=== PATIENT | male | born 1955 | race Caucasian/White ===

== ENCOUNTER 2017-05-11 23:17 | Emergency (ER) | payer SELFPAY ==
[2017-05-11] MEDS ORDERED: Ketorolac INJ* 60 MG/2 ML VIAL IM ONE (23:39)
[2017-05-12] MEDS ORDERED: Ibuprofen TAB* 800 MG PO ONE (00:07)
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
[2017-05-12 00:19] VITALS: BP 144/68
--- NOTE | 2017-05-12 07:35 | RAD ---
INDICATION: Right shoulder pain. TECHNIQUE: 4 views of the right shoulder were obtained. FINDINGS: The bones are in normal alignment. No fracture is seen. There is severe joint space narrowing hypertrophic and sclerotic change present around the glenohumeral joint consistent with severe osteoarthritic change. There is moderate osteoarthritic change in the acromioclavicular joint. There are calcifications adjacent to the superior aspect of the clavicle and acromion process. IMPRESSION: SEVERE OSTEOARTHRITIC CHANGE IN THE GLENOHUMERAL JOINT AND MODERATE OSTEOARTHRITIC CHANGE IN THE ACROMIOCLAVICULAR JOINT.
== END 2017-05-12 00:19 | disposition home or self-care (01) ==
LOC: ED 23:17
DX: M62.838 Other muscle spasm (principal); M25.511 Pain in right shoulder; M54.2 Cervicalgia; M79.89 Other specified soft tissue disorders; I10 Essential (primary) hypertension
CPT/HCPCS: 96372; 99282; A9270-GY; J1885

== ENCOUNTER 2017-08-15 11:07 | Emergency (ER) | payer BC ==
[2017-08-15 12:12] LABS: Hematocrit 46 % (42-52); Hemoglobin 16.2 g/dl (14.0-18.0); Mean Corpuscular HGB Conc 35 g/dl (31-36); Mean Corpuscular Hemoglobin 36 pg (27-31); Mean Corpuscular Volume 102 fL (80-94); Mean Platelet Volume 10 um3 (7.4-10.4); Red Blood Count 4.53 10^6/ul (4.0-5.4); Red Cell Distribution Width 14 % (10.5-15); White Blood Count 8.1 10^3/ul (3.5-10.8)
[2017-08-15 12:35] LABS: Troponin I 0.03 ng/mL (<0.04)
[2017-08-15 12:46] LABS: Albumin 3.8 g/dL (3.2-5.2); BUN/Creatinine Ratio 6.5 (8-20); EGFR African American 48.1 (>60); EGFR Non-African American 37.4 (>60); Globulin 2.8 g/dL (2-4); Potassium 4.2 mmol/L (3.5-5.0); Total Bilirubin 1.7 mg/dL (0.2-1.0); Total Protein 6.6 g/dL (6.4-8.9)
--- NOTE | 2017-08-15 12:49 | RAD ---
HISTORY: Radiculopathy COMPARISONS: March 18, 2015 TECHNIQUE: Multiple contiguous axial CT scans were obtained of the cervical spine without intravenous contrast, with coronal and sagittal multiplanar reformations. FINDINGS: BRAIN: The visualized brain is unremarkable CENTRAL CANAL: Evaluation of the central canal is limited on CT technique; however, there is no obvious canalicular mass or epidural hemorrhage. ALIGNMENT: There is straightening with mild reversal of normal cervical lordosis. VERTEBRAL BODIES: There is multilevel anterolateral marginal osteophyte formation. There are mild sclerotic reactive endplate changes. JOINTS: There is uncovertebral and facet hypertrophic change. MUSCULATURE: Unremarkable INTERVERTEBRAL DISCS: There is diffuse loss of intervertebral disc height. AXIAL IMAGES: C2-C3: There is bilateral uncovertebral hypertrophy. There is no osseous neural foraminal narrowing or central canal stenosis C3-C4: There is a central disc protrusion measuring 0.4 cm in depth. There is exuberant left-sided uncovertebral facet hypertrophy. There is left neural foraminal narrowing. There is no osseous central canal stenosis. C4-C5: There is a broad-based discussed effect convex bilateral uncovertebral and facet hypertrophy. There is severe bilateral neural foraminal narrowing. There is moderate narrowing of the central canal. C5-C6: There is bilateral uncovertebral and facet hypertrophy. There is severe bilateral neural foraminal narrowing. There is mild narrowing of the central canal. C6-C7: There is bilateral uncovertebral facet hypertrophy. There is severe bilateral neural foraminal narrowing. There is no osseous central canal stenosis. C7-T1: There is no osseous neural foraminal narrowing or central canal stenosis. SOFT TISSUES: The visualized soft tissues of the neck are unremarkable. The prevertebral fat stripe is preserved. OTHER: None. IMPRESSION: 1. DEGENERATIVE DISC DISEASE AND OSTEOARTHRITIS. 2. THERE IS A CENTRAL DISC PROTRUSION AT C3-C4. 3. THERE IS MODERATE NARROWING OF CENTRAL CANAL AT C4-C5 WITH MILD NARROWING AT C5-C6. 4. THERE IS MULTILEVEL NEURAL FORAMINAL NARROWING RIGHT ABOVE..
[2017-08-15] MEDS ORDERED: Dexamethasone IV* 4 MG/ML 1 ML (4 MG) IV SLOW PU ONE (15:51)
[2017-08-15 16:06] VITALS: BP 142/78
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
== END 2017-08-15 16:06 | disposition home or self-care (01) ==
LOC: ED 11:07
DX: M54.12 Radiculopathy, cervical region (principal); I10 Essential (primary) hypertension; M06.9 Rheumatoid arthritis, unspecified
CPT/HCPCS: 36415; 72125; 80053; 83605; 84484; 85025; 93005; 99282; J1100

== ENCOUNTER 2017-09-26 14:09 | Emergency (ER) | payer BC, MEDICARE ==
[2017-09-26 14:22] VITALS: BP 179/113
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
== END 2017-09-26 15:05 | disposition short-term general hospital (02) ==
LOC: UCCORT 14:09
DX: S71.132A Puncture wound without foreign body, left thigh, initial encounter (principal); L03.116 Cellulitis of left lower limb; W27.8XXA Contact with other nonpowered hand tool, initial encounter; Y93.9 Activity, unspecified; Y92.9 Unspecified place or not applicable; Y99.0 Civilian activity done for income or pay; E11.9 Type 2 diabetes mellitus without complications; I10 Essential (primary) hypertension; Z88.6 Allergy status to analgesic agent; Z88.1 Allergy status to other antibiotic agents; Z88.8 Allergy status to other drugs, medicaments and biological substances
CPT/HCPCS: 99212; G0463

== ENCOUNTER 2017-09-26 16:04 | Emergency (ER) | payer MEDICARE ==
[2017-09-26 16:33] VITALS: BP 162/98
[2017-09-26 16:36] LABS: Hematocrit 40 % (42-52); Hemoglobin 14.1 g/dl (14.0-18.0); Mean Corpuscular HGB Conc 35 g/dl (31-36); Mean Corpuscular Hemoglobin 35 pg (27-31); Mean Corpuscular Volume 100 fL (80-94); Mean Platelet Volume 9 um3 (7.4-10.4); Red Blood Count 4.05 10^6/ul (4.0-5.4); Red Cell Distribution Width 13 % (10.5-15); White Blood Count 14.6 10^3/ul (3.5-10.8)
[2017-09-26 16:43] LABS: Albumin 3.8 g/dL (3.2-5.2); BUN/Creatinine Ratio 9.7 (8-20); Calcium 9.3 mg/dL (8.6-10.3); EGFR Non-African American 42.8 (>60); Globulin 3.7 g/dL (2-4); Potassium 3.7 mmol/L (3.5-5.0); Total Bilirubin 1.3 mg/dL (0.2-1.0); Total Protein 7.5 g/dL (6.4-8.9)
--- NOTE | 2017-09-26 19:47 | RAD ---
Indication: Leg injury. 2 views of the leg demonstrates a hypoechoic area in the left thigh measuring 16 x 13 x 6 mm. This may represent a small hematoma. IMPRESSION: In the area of tenderness in the left thigh small hypoechoic area measuring 16 x 13 x 16 mm may represent a small hematoma.
[2017-09-26] MEDS ORDERED: Sulfamethox/Trimethoprim DS 800/160* TAB PO ONE ×2 (20:01)
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
== END 2017-09-26 20:19 | disposition home or self-care (01) ==
LOC: ED 16:04
DX: S70.12XA Contusion of left thigh, initial encounter (principal); M06.9 Rheumatoid arthritis, unspecified; I10 Essential (primary) hypertension; W45.0XXA Nail entering through skin, initial encounter; Y92.9 Unspecified place or not applicable
CPT/HCPCS: 36415; 80053; 85025; 85610; 85730; 93005; 99282; A9270-GY

== ENCOUNTER 2019-01-13 21:20 | Emergency (ER) | payer MEDICARE ==
[2019-01-13] MEDS ORDERED: HYDROcodone/ACETAMIN 5-325 MG* 1 TAB PO ONE (22:09)
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
[2019-01-13] MEDS ORDERED: Acetaminophen TAB* 325 MG PO ONE (22:20)
[2019-01-13 22:31] LABS: ABS Basophils 0 10^3/ul (0-0.2); ABS Eosinophils 0.2 10^3/ul (0-0.6); ABS Lymphocytes 1.3 10^3/ul (1.0-4.8); ABS Monocytes 0.9 10^3/ul (0-0.8); ABS Neutrophils 6.5 10^3/ul (1.5-7.7); ABS Nucleated RBC 0 10^3/ul; Eosinophil % 1.7 %; Hematocrit 54 % (36-46); Hemoglobin 18.3 g/dL (14.0-18.0); Lymphocyte % 14.8 %; Mean Corpuscular HGB Conc 34 g/dL (31-36); Mean Corpuscular Hemoglobin 34 pg (27-31); Mean Corpuscular Volume 100 fL (80-94); Mean Platelet Volume 9.1 fL (7.4-10.4); Nucleated Red Blood Cells % 0.1; Platelet Count 211 10^3/uL (150-450); Red Blood Count 5.38 10^6 /uL (4.18-5.48); Red Cell Distribution Width 14 % (10.5-15); White Blood Count 8.9 10^3/uL (3.5-10.8)
[2019-01-13 22:47] LABS: BUN/Creatinine Ratio 8.4 (8-20); C Reactive Protein 16.84 mg/L (<8.01); Calcium 9.5 mg/dL (8.6-10.3); EGFR African American 67.3 (>60); EGFR Non-African American 55.6 (>60)
[2019-01-14 00:43] VITALS: BP 174/117
== END 2019-01-14 00:41 | disposition home or self-care (01) ==
LOC: ED 21:20
DX: R60.0 Localized edema (principal); M25.562 Pain in left knee; E11.9 Type 2 diabetes mellitus without complications; I10 Essential (primary) hypertension; Z88.6 Allergy status to analgesic agent; Z88.8 Allergy status to other drugs, medicaments and biological substances
CPT/HCPCS: 36415; 80048; 85025; 86140; 99282; A9270-GY

== ENCOUNTER 2019-12-08 19:28 | Emergency (ER) | payer MEDICARE ==
--- OUTSIDE RECORDS SUMMARY | 2019-12-08 19:56 | XMS REPORT | Summary of Care ---
:1955 Author Organization [facility] Address [address] [place] [address] Care Team Providers Name Role Phone Paulette Felix Primary Care Provider Reason for Referral MRI/CAT/PET Scan (Routine) Status Reason Specialty Diagnoses / Referred By Referred To Procedures Contact Contact Authorized Diagnoses Syncope, unspecified syncope type Paulette Felix Procedures VL NECK CAROTID BILATERAL [facility] [address] [place] [address] MRI/CAT/PET Scan (Routine) Status Reason Specialty Diagnoses / Procedures Referred By Referred To Contact Contact Authorized Diagnoses Acute nonintractable headache, unspecified headache type Syncope, unspecified syncope type Elvira, Procedures MR BRAIN WO CONTRAST [facility] [place] [address] [place] [address] Diagnostic Testing (Routine) Status Reason Specialty Diagnoses / Referred By Referred To Procedures Contact Contact Pending Review Diagnoses Syncope, unspecified syncope type Elvira, Procedures ECHOCARDIOGRAM TTE [facility] [place] [address] [place] [address] Reason for Visit Reason Comments Check Up blacking out when standing up x2wks Encounter Details Date Type Department Care Team Description 11/12/2019 Office Visit [facility] [place], Syncope, unspecified syncope type (Primary Dx); Practice [facility] [place] Acute nonintractable headache, unspecified headache type [address] [place] [address] [place] [address] [phone] Allergies Active Allergy Reactions Severity Noted Date Comments Metformin GI Reaction 09/26/2017 Nsaids Other 05/06/2016 Renal Statins Musculoskeletal 04/29/2018 With elevated CPK on lipitor Tizanidine Cardiac Reaction 05/04/2015 Syncope documented as of this encounter (statuses as of 11/13/2019) Medications Medication Sig Dispensed Refills Start Date End Date Status hydroxychloroquine Take 400 mg by 0 Active (PLAQUENIL) 200 MG Oral mouth DAILY. Tab TESTOSTERONE CYPIONATE Inject 50 mg 0 Active IM within a muscle. Sildenafil Citrate 100 Take 1 Tab by 30 Tab 0 05/31/2019 Active MG Oral Tab mouth DAILY. amitriptyline (ELAVIL, TAKE FOUR 240 Tab 1 06/18/2019 Active ENDEP) 25 MG Oral TABLETS BY TabIndications: MOUTH AT Insomnia, unspecified BEDTIME type sitagliptin (JANUVIA) Take 1 Tab by 90 Tab 0 07/18/2019 Active 100 MG Oral mouth DAILY. TabIndications: Uncontrolled type 2 diabetes mellitus with hyperglycemia (HCC) carvedilol (COREG) 12.5 Take 1 Tab by 60 Tab 2 07/18/2019 Active MG Oral TabIndications: mouth TWICE Hypertension, DAILY. unspecified type amLodipine (NORVASC) 10 TAKE ONE 90 Tab 1 07/26/2019 Active MG Oral TabIndications: TABLET BY Hypertension, MOUTH EVERY unspecified type DAY Omeprazole 40 MG Oral TAKE ONE 90 Cap 1 08/16/2019 Active CAPSULE DELAYED CAPSULE BY RELEASEIndications: MOUTH EVERY Gastroesophageal reflux DAY BEFORE disease, esophagitis BREAKFAST presence not specified lisinopril (PRINIVIL, TAKE ONE 90 Tab 1 08/18/2019 Active ZESTRIL) 40 MG Oral TABLET BY TabIndications: MOUTH EVERY Hypertension, DAY unspecified type glipiZIDE (GLUCOTROL Take 2 Tabs by 180 Tab 1 08/18/2019 Active XL) 10 MG Oral TABLET mouth DAILY. SR 24 HRIndications: Uncontrolled type 2 diabetes mellitus with hyperglycemia (HCC) clotrimazole-betamethas Apply 45 g 0 10/04/2019 Active one (LOTRISONE) 1-0.05 sparingly to % Apply externally rash twice a CreamIndications: Rash day hydrOXYzine HCL Take 1 Tab by 90 Tab 0 10/09/2019 Active (ATARAX) 25 MG Oral mouth THREE TabIndications: Rash TIMES DAILY NEEDED (itchiness of skin). venlafaxine (EFFEXOR TAKE ONE 90 Cap 0 10/14/2019 Active XR) 75 MG Oral CAPSULE CAPSULE BY SR 24 HRIndications: MOUTH EVERY Depression, unspecified DAY depression type chlorthalidone Take 1 Tab by 30 Tab 1 10/22/2019 Active (HYGROTON) 25 MG Oral mouth DAILY. TabIndications: Essential hypertension Dulaglutide (TRULICITY) Inject 0.75 mg 1.96 mL 3 10/26/2019 Active 0.75 MG/0.5ML beneath the Subcutaneous Solution skin EVERY 7 Pen-injectorIndications DAYS. : Controlled type 2 diabetes mellitus with diabetic neuropathy, with long-term current use of insulin ([facility]) Liraglutide 18 MG/3ML Inject 0.6 mg 3 Pre-filled 3 10/27/2019 02/01/20 Active Subcutaneous Solution beneath the Pen Syringe 20 Pen-injectorIndications skin DAILY for : Controlled type 2 7 days, THEN diabetes mellitus with 1.2 mg DAILY diabetic neuropathy, for 90 days. with long-term current use of insulin ([facility]) pioglitazone (ACTOS) 15 Take 1 Tab by 90 Tab 1 10/28/2019 Active MG Oral TabIndications: mouth DAILY. Type 2 diabetes mellitus without complication, without long-term current use of insulin ([facility]) ciprofloxacin (CIPRO) Take 1 Tab by 1 Tab 0 11/11/2019 11/12/19 500 MG Oral mouth 20 TabIndications: DIRECTED for 1 Elevated PSA day. 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 Jaramillo) Effusion of left knee 01/18/2019 Inflammatory arthritis 01/12/2019 S/P arthroscopy of left knee 12/28/2018 Claudication 11/20/2018 Controlled type 2 diabetes mellitus with diabetic neuropathy, with 11/20/2018 long-term current use of insulin Primary osteoarthritis of right knee 09/04/2018 Traumatic tear of medial meniscus of left knee 08/20/2018 CASANDRA (acute kidney injury) 03/11/2018 Right renal mass 01/11/2018 Well adult exam 05/20/2017 Cancer Survivorship 01/08/2017 Overview: Survivorship Treatment Summary - Melanoma Stage IA and IIA [facility] Stage IA T1a Cancer Care Team: Surgeon: Dr. Medrano Surgical Physician Hatchery Attendant: Tennille Mohan PA-C Diagnosis and Staging : Date of diagnosis: 12/03/16 Final Pathologic Diagnosis 1. Skin, left back, excision: - Malignant melanoma, non-ulcerated, invasive to a depth of 0.73 mm. Synoptic Report: - Site: Left back. - Breslow's thickness: 0.73 mm. - Tenzin's level: IV. - Cell type: Epithelioid. - Ulceration: Not identified. - Mitotic index: <1/mm2. - Microsatellite nodules: Not identified. - Lymphovascular invasion: Not identified. - Perineural invasion: Not identified. - Regression: Present. - Tumor infiltrating lymphocytes: Minimal. - Pre-existing lesions: Dysplastic nevus. - Margins: The intraepidermal component and dermal components extend to within 0.5 mm and 2 mm of a radial margin, respectively. - Pathologic staging (AJCC Seventh Edition): pT1a, NX, MX. Primary site: Left Upper Back adjacent to Tattoo Clinical stage : pT1a Stage IA Surgery: Date: 12/26/16 Dr. Medrano OPERATIONS: (1) Wide excision, 3 cm x 9 cm, melanoma left upper back. (2) Intermediate wound closure. (3) Excision of basal cell carcinoma right upper back, 4 x 9 cm. (4) Intermediate wound closure. Final Pathology: Final Pathologic Diagnosis 1. Skin, left shoulder, excision: - No residual melanoma seen. - Biopsy site changes. FOLLOW UP PLAN Post Treatment Surveillance Recommendations: - Establish care or Continue current visits with [facility] for Total Body Skin Exams every 3-6 months for 2 years following diagnosis. - Annual visits after the first 2 years for Total Body Skin Exams for life. - Any unusual or changing skin lesions should be brought to the attention of your Dermatology Provider. - You may contact our office with concerning lesions for possible biopsy though this does not replace annual Total Body Skin Exams. - Routine blood tests are not recommended. PREVENTIVE HEALTH & CANCER SCREENING: -Maintain yearly appointments with PCP. Schedule of follow up Clinic Visits: - Surgical Oncology [place]/Dr. Medrano - As Needed [facility] [address] [facility] [place] [address] - Dermatology [facility] Dr. Ray 02/18/2017 @ 2:30 PM Basal cell carcinoma of back 12/11/2016 Malignant melanoma of skin 12/11/2016 Prediabetes 11/07/2016 Skin lesion of back 11/07/2016 Elevated PSA 05/06/2016 Elevated LDL cholesterol level 05/06/2016 Tinea versicolor 05/02/2016 Primary insomnia 10/03/2015 Essential hypertension 10/03/2015 Erectile dysfunction due to arterial insufficiency 09/05/2015 Colon cancer screening 09/05/2015 Prostate cancer screening 09/05/2015 History of rotator cuff surgery 09/05/2015 Overview: Right Family history of diabetes mellitus type II 09/05/2015 Family history of anxiety disorder 09/05/2015 Family history of early CAD 09/05/2015 Overview: Father. Refractive error 09/05/2015 Overview: Dr. 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 seeing dr. slater documented as of this encounter (statuses as of 11/13/2019) Resolved Problems Problem Noted Date Resolved Date BMI 29.0-29.9,adult 10/03/2015 10/31/2015 Lipid screening 10/03/2015 05/06/2016 Well adult 09/05/2015 05/20/2017 BMI 31.0-31.9,adult 09/05/2015 10/03/2015 Insomnia 09/05/2015 10/03/2015 Syncope and collapse 03/22/2015 09/05/2015 Right orbital fracture 03/21/2015 09/05/2015 arthroscopy right knee partial arthroscopic medial 12/21/2014 09/05/2015 meniscectomy, chondroplasty femoral trochlea and medial femoral condyle, shaving of the lateral meniscus Nasal bone fracture 08/09/2014 09/05/2015 Scalp laceration 08/09/2014 09/05/2015 Laceration of leg, left 08/09/2014 09/05/2015 Olecranon fracture 08/09/2014 09/05/2015 Overview: Right Traumatic diastasis of symphysis pubis 08/09/2014 09/05/2015 Crush injury lower leg 08/09/2014 09/05/2015 Rash 07/03/2013 09/07/2014 BMI 30.0-30.9,adult 04/08/2013 09/05/2015 Essential hypertension, benign 05/18/2009 09/05/2015 Overview: Diagnosed as a teen/early 20s Anxiety state, unspecified 09/19/2008 04/10/2012 Acute sinusitis, unspecified 09/19/2008 04/11/2011 Acute upper respiratory infections of unspecified site 09/19/2008 04/11/2011 Erectile dysfunction 10/03/2015 documented as of this encounter (statuses as of 11/13/2019) Immunizations Name Administration Dates Next Due TDAP Vaccine 08/05/2014 documented as of this encounter Social History Tobacco Use Types Packs/Day Years Used Date Never Smoker Smokeless Tobacco: Never Used Alcohol Use Drinks/Week oz/Week Comments Yes 4 Glasses of wine 4.0 weekends: 4 vodkas. Sex Assigned at Date Recorded Not on file Job Start Date Occupation Industry Not on file Not on file Not on file Travel History Travel Start Travel End No recent travel history available. documented as of this encounter Last Filed Vital Signs Vital Sign Reading Time Taken Comments Blood Pressure 144/82 11/12/2019 2:21 PM EST Pulse 64 11/12/2019 2:21 PM EST Temperature 36.9 11/12/2019 1:44 PM EST C (98.5 F) Respiratory Rate - - Oxygen Saturation 96% 11/12/2019 1:44 PM EST Inhaled Oxygen Concentration - - Weight 100.7 kg (222 lb) 11/12/2019 1:44 PM EST Height 177.8 cm (5' 10") 11/12/2019 1:44 PM EST Body Mass Index 31.85 11/12/2019 1:44 PM EST documented in this encounter Patient Instructions Patient InstructionsPaulette Felix NP - 11/12/2019 1:40 PM ESTEKG, Chest Xray and Lab work today. Schedule echocardiogram. Schedule MRI brain. STOP the Chlorthalidone. INCREASE your carvedilol to one tab in the morning, and TWO tablets at night. Recheck labs in 2 weeks - schedule your lab appointment on your way out. Stay hydrated - drink plenty of water. If you develop weakness on one side of your body, facial droop, slurred speech, or confusion - please go immediately to the emergency room. documented in this encounter Progress Notes Paulette Felix NP - 11/12/2019 1:40 PM EST PATIENT: Reji Serra : 1955 DATE OF SERVICE: 11/12/2019 CHIEF COMPLAINT: Chief Complaint Patient presents with Check Up blacking out when standing up x2wks Subjective HISTORY OF PRESENT ILLNESS: Reji Serra is a 64-y.o. male. HPI Last few weeks when going from sitting to standing he will lose consciousness for 2-3 seconds at a time. He does not fall, he can feel it coming and is able to sit down until the feeling passes. Feelshis muscles are weak in arms, chest, neck - has to hold his head up. Whenever he carries a box thatis 25 lbs, he gets chest pressure. Gets fatigued and winded when going up 16 stairs. Feels like his lungs not opening up enough. Dull headaches for the last few weeks. Sometimes gets dots and squiggly lines in his vision. Headaches are unilateral. No photosensitivity or otosensitivity. Dry heaves. Has EGD scheduled on 11/16/19 - this has been ongoing for awhile. Was recently started on chlorthalidone but kidney function declined, potassium dropped so advised tostop chlorthalidone, hydrate on 11/09. To recheck BMP in 2 weeks to recheck kidney function. Increase carvedilol to 2 tabs in am and 1 in pm for blood pressure. OV with urology dr mae yesterday, prostate biopsy done for elevated PSA. Follow up with him in 2 weeks. Pioglitazone added for diabetes last visit, a1c 9.4. Not checking sugars. 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 seeing dr. slater Unspecified essential hypertension Wrist fracture teen Family History Problem Relation Age of Onset Arthritis Mother Diabetes Mother Stroke Mother Hypertension Mother Arthritis Father Heart Father 50 Hypertension Father Anesth Problems No family history Cancer No family history Clotting Disorder No family history Heart Disease No family history Kidney Disease No family history Thyroid Disease No family history Ataxia No family history Dementia No family history Developmental Delay No family history Mental Retardation No family history Multiple Sclerosis No family history Muscular Dystrophy No family history Neurofibromatosis No family history Parkinson's No family history Seizures No family history Current Outpatient Medications Medication Sig amitriptyline (ELAVIL, ENDEP) 25 MG Oral Tab TAKE FOUR TABLETS BY MOUTH AT BEDTIME amLodipine (NORVASC) 10 MG Oral Tab TAKE ONE TABLET BY MOUTH EVERY DAY carvedilol (COREG) 12.5 MG Oral Tab Take 1 Tab by mouth TWICE DAILY. chlorthalidone (HYGROTON) 25 MG Oral Tab Take 1 Tab by mouth DAILY. clotrimazole-betamethasone (LOTRISONE) 1-0.05 % Apply externally Cream Apply sparingly to rash twice a day Dulaglutide (TRULICITY) 0.75 MG/0.5ML Subcutaneous Solution Pen-injector Inject 0.75 mg beneath the skin EVERY 7 DAYS. glipiZIDE (GLUCOTROL XL) 10 MG Oral TABLET SR 24 HR Take 2 Tabs by mouth DAILY. hydroxychloroquine (PLAQUENIL) 200 MG Oral Tab Take 400 mg by mouth DAILY. hydrOXYzine HCL (ATARAX) 25 MG Oral Tab Take 1 Tab by mouth THREE TIMES DAILY NEEDED (itchiness of skin). Liraglutide 18 MG/3ML Subcutaneous Solution Pen-injector Inject 0.6 mg beneath the skin DAILYfor 7 days, THEN 1.2 mg DAILY for 90 days. lisinopril (PRINIVIL, ZESTRIL) 40 MG Oral Tab TAKE ONE TABLET BY MOUTH EVERY DAY Omeprazole 40 MG Oral CAPSULE DELAYED RELEASE TAKE ONE CAPSULE BY MOUTH EVERY DAY BEFORE BREAKFAST pioglitazone (ACTOS) 15 MG Oral Tab Take 1 Tab by mouth DAILY. Sildenafil Citrate 100 MG Oral Tab Take 1 Tab by mouth DAILY. sitagliptin (JANUVIA) 100 MG Oral Tab Take 1 Tab by mouth DAILY. TESTOSTERONE CYPIONATE IM Inject 50 mg within a muscle. venlafaxine (EFFEXOR XR) 75 MG Oral CAPSULE SR 24 HR TAKE ONE CAPSULE BY MOUTH EVERY DAY No current facility-administered medications for this visit. Allergies Allergen Reactions Metformin GI Reaction Nsaids Other Renal Statins Musculoskeletal With elevated CPK on lipitor Tizanidine Cardiac Reaction Syncope Social History Socioeconomic History Marital status: Single Spouse name: Not on file Number of children: Not on file Years of education: Not on file Highest education level: Not on file Occupational History Not on file Social Needs Financial resource strain: Not on file Food insecurity Worry: Not on file Inability: Not on file Transportation needs Medical: Not on file Non-medical: Not on file Tobacco Use Smoking status: Never Smoker Smokeless tobacco: Never Used Substance and Sexual Activity Alcohol use: Yes Alcohol/week: 4.0 standard drinks Types: 4 Glasses of wine per week Comment: weekends: 4 vodkas. Drug use: No Sexual activity: Yes Partners: Female Lifestyle Physical activity Days per week: Not on file Minutes per session: Not on file Stress: Not on file Relationships Social connections Talks on phone: Not on file Gets together: Not on file Attends tenriism service: Not on file Active member of club or organization: Not on file Attends meetings of clubs or organizations: Not on file Relationship status: Not on file Intimate partner violence Fear of current or ex partner: Not on file Emotionally abused: Not on file Physically abused: Not on file Forced sexual activity: Not on file Other Topics Concern Not on file Social History Narrative Not on file REVIEW OF SYSTEMS: Review of Systems Constitutional: Negative for chills, fever and malaise/fatigue. HENT: Positive for sore throat (chronic). Negative for congestion, ear discharge , ear pain and sinuspain. Dry mouth Eyes: Positive for blurred vision (chronic). Negative for photophobia. Respiratory: Negative for cough and shortness of breath. Cardiovascular: Positive for chest pain (heaviness). Negative for palpitations and leg swelling. Gastrointestinal: Positive for nausea. Negative for abdominal pain and vomiting. Musculoskeletal: Positive for neck pain. Neurological: Positive for dizziness, loss of consciousness, weakness and headaches. Negative for tingling and sensory change. Objective PHYSICAL EXAM: VITALS: BP (!) 144/82 (BP Location: Left arm, Patient Position: Standing) | Pulse 64 | Temp 98.5 F (36.9 C) (Tympanic) | Ht 5' 10" (1.778 m) | Wt 222 lb (100.7 kg) | SpO2 96% | BMI 31.85kg/m Body mass index is 31.85 kg/m. Physical Exam Vitals signs and nursing note reviewed. Constitutional: General: He is not in acute distress. Appearance: He is well-developed. He is not toxic-appearing. HENT: Mouth/Throat: Pharynx: Uvula midline. Eyes: General: Lids are normal. Extraocular Movements: Right eye: Normal extraocular motion and no nystagmus. Left eye: Normal extraocular motion and no nystagmus. Conjunctiva/sclera: Conjunctivae normal. Pupils: Pupils are equal, round, and reactive to light. Visual Good: Right eye visual good normal and left eye visual good normal. Neck: Musculoskeletal: Normal range of motion and neck supple. No spinous process tenderness or muscular tenderness. Vascular: No carotid bruit. Cardiovascular: Rate and Rhythm: Normal rate and regular rhythm. Heart sounds: Normal heart sounds. No murmur. No friction rub. No gallop. Pulmonary: Effort: Pulmonary effort is normal. No respiratory distress. Breath sounds: Normal breath sounds. Musculoskeletal: Right lower leg: No edema. Left lower leg: No edema. Neurological: General: No focal deficit present. Mental Status: He is alert and oriented to person, place, and time. GCS: GCS eye subscore is 4. GCS verbal subscore is 5. GCS motor subscore is 6. Cranial Nerves: Cranial nerves are intact. No cranial nerve deficit. Sensory: Sensation is intact. No sensory deficit. Motor: Motor function is intact. No weakness or tremor. Coordination: Coordination is intact. Coordination normal. Gait: Gait is intact. Gait normal. Deep Tendon Reflexes: Reflexes are normal and symmetric. Psychiatric: Speech: Speech normal. Behavior: Behavior normal. Thought Content: Thought content normal. ASSESSMENT / IMPRESSION: ICD-9-CM ICD-10-CM 1. Syncope, unspecified syncope type 780.2 R55 AMBULATORY 12 LEAD EKG (GLOBAL) ECHOCARDIOGRAM TTE POSTURAL VITAL SIGNS CBC WITH DIFFERENTIAL COMPREHENSIVE METABOLIC PANEL NT PROBNP CREATINE KINASE MR BRAIN WO CONTRAST CBC WITH DIFFERENTIAL COMPREHENSIVE METABOLIC PANEL NT PROBNP CREATINE KINASE XR CHEST 2 VIEW PA AND LATERAL (STANDARD) VL NECK CAROTID BILATERAL 2. Acute nonintractable headache, unspecified headache type 784.0 R51 MR BRAIN WO CONTRAST Plan 1. Syncope, unspecified syncope type -orthostatics within normal limits -EKG nsr - given to Dr. Feliciano for read. -Will do bloodwork, echo, carotid ultrasound. -He had not stopped the chlorthalidone - advised to stop chlorthalidone, increase carvedilol for BP,and recheck labs in 2 weeks for kidney function and K +. - AMBULATORY 12 LEAD EKG (GLOBAL) - ECHOCARDIOGRAM TTE; Future - POSTURAL VITAL SIGNS - CBC WITH DIFFERENTIAL; Future - COMPREHENSIVE METABOLIC PANEL; Future - NT PROBNP; Future - CREATINE KINASE; Future - MR BRAIN WO CONTRAST; Future - CBC WITH DIFFERENTIAL - COMPREHENSIVE METABOLIC PANEL - NT PROBNP - CREATINE KINASE - XR CHEST 2 VIEW PA AND LATERAL (STANDARD); Future - VL NECK CAROTID BILATERAL; Future 2. Acute nonintractable headache, unspecified headache type -Neuro exam normal but given new onset of headaches plus other symptoms, will do MRI. - MR BRAIN WO CONTRAST; Future Author: Paulette Felix NP 11/13/2019 08:47 documented in this encounter Plan of Treatment Date Type Specialty Care Team Description 12/06/2019 Urology Nurse/clinical Urology support 12/06/2019 Office Visit Urology David Mae MD [address] [place] [address] [phone] Name Type Priority Associated Diagnoses Order Schedule AMBULATORY 12 LEAD EKG EKG Routine Syncope, unspecified Ordered: (GLOBAL) syncope type 11/12/2019 ECHOCARDIOGRAM TTE CV Lab Routine Syncope, unspecified Expected: syncope type 11/12/2019, Expires: 12/16/2020 MR BRAIN WO CONTRAST Imaging Routine Acute nonintractable Expected: headache, unspecified 11/12/2019, headache type Expires: Syncope, unspecified 11/11/2020 syncope type XR CHEST 2 VIEW PA AND Imaging Routine Syncope, unspecified Expected: LATERAL (STANDARD) syncope type 11/12/2019, Expires: 11/11/2020 VL NECK CAROTID BILATERAL Imaging Routine Syncope, unspecified Expected: syncope type 11/13/2019, Expires: 01/11/2021 Health Maintenance Due Date Last Done Comments MEDICARE ANNUAL WELLNESS 1955 VISIT PNEUMOCOCCAL 0-64 YRS (1 of 1963 1 - PPSV23) ZOSTER IMMUNIZATION SERIES 2007 (1 of 2) HEMOGLOBIN A1C 01/21/2020 10/22/2019, 07/14/2019, 04/15/2019, Additional history exists DEPRESSION SCREENING 04/15/2020 04/15/2019, 04/15/2019 Diabetic Eye Exam 04/23/2020 04/23/2018, 04/23/2018, 04/23/2018, Additional history exists LIPID DISORDER SCREENING 07/14/2020 07/14/2019, 09/06/2017, 05/02/2016, Additional history exists FOOT EXAM 10/22/2020 10/22/2019, 10/22/2019, 10/22/2019, Additional history exists Colonoscopy 11/20/2020 11/20/2015, 11/20/2015, 04/11/2011 (Postponed) DTaP/Tdap/Td Vaccines (2 - 08/05/2024 08/05/2014 Tdap) HEPATITIS A IMMUNIZATION Aged Out No longer eligible SERIES based on patient's age to complete this topic HPV IMMUNIZATION SERIES Aged Out No longer eligible based on patient's age to complete this topic MENINGOCOCCAL VACCINE IMM Aged Out No longer eligible based on patient's age to complete this topic documented as of this encounter Goals Goal Patient Goal Associated Recent Patient-Stated? Author Type Problems Progress Blood Pressure Blood Pressure 144/82 No Rylee, < 140/90 (11/12/2019 MD Anthony 2:21 PM EST) Note: This is an individualized treatment (blood pressure) goal for Reji Serra: Displayed above (on the left) is your goal for blood pressure control. Your most recent blood pressure is also shown above, on the right. You should try to achieve blood pressures that are lower than your goal listed above (on the left). Depression screen (PHQ-9) Depression 6 (04/15/2019 1:24 PM No Casey Fuller DO total score < 5 EDT) Note: This is an individualized treatment (depression) goal for Reji Serra: Displayed above is your goal for a depression screening (PHQ-9) score that would indicate good control of your depression. Glycohemoglobin A1c < 7.0 Diabetes 9.4 (10/22/2019 1:58 PM No Magdalena Collins RN EST) Note: This is an individualized treatment (diabetes control, HgbA1C) goal for Reji Serra: Displayed above is your progress towards your HgbA1C goal. Your goal is shown above (on the left); your most recent HgbA1C is shown on the right. Note that lower numbers are better. Weight loss vs. 18 mo Lifestyle 15 (11/12/2019 1:44 PM No Anthony Mckee MD max (lbs) >= 10 EST) Note: This is an individualized lifestyle goal for Reji Serra: Your body mass index (BMI) is more than 30. You should lose weight. A reasonable starting goal is to lose 10 pounds. Displayed above is how many pounds you have lost thus far towards your 10 pound weight loss goal. Keep immunizations current Lifestyle No Magdalena Collins RN Note: This is an individualized lifestyle goal for Reji Serra: Please be sure to keep up-to-date on recommended immunizations. For example, this would include a yearly influenza vaccine. Immunization status can be seen by looking at the Health Maintenance sections of your [facility], Plan of Care, and any After Visit Summaries. Keep a regular sleep schedule Lifestyle No Casey Fuller DO Note: This is an individualized lifestyle goal for Reji Serra: Please maintain a regular sleep schedule. This may help with some symptoms of depression. Take all prescribed medications as Self-management No Anthony Mckee MD directed Note: This is an individualized self-management goal for Reji Serra: Please take all prescribed medications as directed. 1. Do not skip doses. If you cannot afford your medications, talk with your doctor. 2. Use a pill reminder system such as a pill box if needed. Your pharmacist can help you with this. 3. Contact your Pharmacy 5 days before your medication runs out. If you cannot take your medications for any reasons, talk with your doctor. 4. Please bring all of your medication bottles and inhalers (or a list of all your medications/inhalers) with you to every visit. Potential barriers to meeting all of your care plan goals will continue to be addressed on an ongoing basis. documented as of this encounter Procedures Procedure Name Priority Date/Time Associated Comments Diagnosis CBC WITH DIFFERENTIAL Routine 11/12/2019 2:29 Syncope, Results for this PM EST unspecified syncope procedure are in type the results section. NT PROBNP Routine 11/12/2019 2:29 Syncope, Results for this PM EST unspecified syncope procedure are in type the results section. CREATINE KINASE Routine 11/12/2019 2:29 Syncope, Results for this PM EST unspecified syncope procedure are in type the results section. COMPREHENSIVE Routine 11/12/2019 2:29 Syncope, Results for this METABOLIC PANEL PM EST unspecified syncope procedure are in type the results section. documented in this encounter Results CREATINE KINASE (11/12/2019 2:29 PM EST) CPK 64 55 - 170 U/L [facility] Specimen Blood - Blood specimen (specimen) Performing Organization Address [facility] Phone Number [facility] [address] [address] [phone] NT PROBNP (11/12/2019 2:29 PM EST) NT PRO BNP 119 <125 pg/ml [facility] Comment: [facility]ORY Recommended cut points for the diagnostic evaluation of heart failure patients with acute dyspnea* Ages (years) Optimal [place] (pg/ml) <50 450 50-75 900 >75 1800 *The [employer] Journal of Cardiology NTproBNP results should be interpreted in the context of the overall picture. Serum concentrations of natriuretic peptides may be elevated in patients with acute myocardial infarction and renal insuffic iency. Certain drugs may alter results. Heterophilic antibodies are known to cause interference with immunoassays. Results which are inconsistent with clinical observation indicate a need for additional testing. NTproBNP testing performed on [employer]. Results will not correlate with other methodologies. Specimen Blood - Blood specimen (specimen) Performing Organization Address [facility] Phone Number [facility] [address] [id number] COMPREHENSIVE METABOLIC PANEL (11/12/2019 2:29 PM EST) Sodium 131 (L) 134 - 145 mmol/L [facility] Potassium 3.9 3.5 - 5.1 mmol/L [facility] Chloride 91 (L) 98 - 107 mmol/L [facility] CO2 31 (H) 22 - 30 mmol/L [facility] Calcium 8.9 8.3 - 10.1 mg/dl [facility] Albumin 4.1 3.5 - 5.0 g/dl [facility] BUN 28 (H) 9 - 20 mg/dl [facility] Creatinine 1.5 0.8 - 1.5 mg/dl [facility] Glucose 220 (H) 70 - 99 mg/dl [facility] Total Protein 7.0 6.3 - 8.2 g/dl [facility] Total Bilirubin 1.6 (H) 0.0 - 1.1 MG/DL [facility] AST 73 (H) 17 - 59 U/L [facility] ALT 89 (H) 21 - 72 U/L [facility] Alkaline 150 40 - 150 U/L [facility] eGFR 47 See Interpretation [facility] Comment: Below ml/min/1.73ml GROUP Estimated GFR Interpretation: Sq LABORATORY Above 60ml/min/1.73m2 = Normal Renal Function 30-59 ml/min/1.73m2 = Stage 3 Chronic Kidney Disease 15-29 ml/min/1.73m2 = Stage 4 Chronic Kidney Disease Less than 15 ml/min/1.73m2 = Stage 5 Chronic Kidney Disease The GFR value is calculated using the Modification of Diet in Renal Disease ( MDRD) Study Equation which can be found at: https://www.kidney.org/content/nwky-fdvxm-fyeazvnl BUN/Creatinine 19 6 - 22 RATIO [facility] LAB[facility]ATORY Anion Gap 9 3 - 11 mmol/L [facility] A/G Ratio 1.4 0.8 - 2.0 ratio [facility] Specimen Blood - Blood specimen (specimen) Performing Organization Address City/State/Zipcode Phone Number [facility] [address] [address] [phone] CBC WITH DIFFERENTIAL (11/12/2019 2:29 PM EST) WBC Count 8.46 4.23 - 9.07 K/uL [facility] RBC Count 4.61 4.30 - 5.89 M/UL [facility] Hemoglobin 16.3 13.7 - 17.5 g/dL [facility] Hematocrit 47.5 40.1 - 51.0 % [facility] MCV 103.0 (H) 79.0 - 92.2 FL [facility] MCH 35.4 (H) 25.7 - 32.2 PG [facility] MCHC 34.3 32.3 - 36.5 g/dL [facility] Platelet Count 193 163 - 337 K/uL [facility] MPV 11.4 9.4 - 12.4 FL [facility] RDW 12.0 11.6 - 14.4 % [facility] Neutrophil % 68.9 (H) 34.0 - 67.9 % [facility] Lymphocyte % 18.7 (L) 21.8 - 53.1 % [facility] Monocyte % 9.5 5.3 - 12.2 % [facility] Eosinophil % 1.4 0.8 - 7.0 % [facility] Basophil % 0.8 0.2 - 1.2 % [facility] nRBC % 0.0 0.0 - 0.2 % [facility] Neutrophil # 5.83 (H) 1.78 - 5.38 K/UL [facility] Lymphocyte # 1.58 1.32 - 3.57 K/UL [facility] Monocyte # 0.80 0.30 - 0.82 K/UL [facility] Eosinophil # 0.12 0.04 - 0.54 K/UL [facility] Basophil # 0.07 0.01 - 0.08 K/UL [facility] Immature Gran % 0.7 (H) 0.0 - 0.4 % [facility] Immature Gran # 0.06 (H) 0.00 - 0.03 K/uL [facility] NRBC # 0.00 0.00 - 0.12 K/uL [facility] Specimen Blood - Blood specimen (specimen) Performing Organization Address City/State/Zipcode Phone Number [facility] [address] [address] [phone] documented in this encounter Visit Diagnoses Diagnosis Syncope, unspecified syncope type Acute nonintractable headache, unspecified headache type documented in this encounter (Home) [place], [place] [phone] (Work) documented as of this encounter Advance Directives Code Status Date Activated Date Inactivated Comments Full Code 01/08/2018 4:15 PM 01/11/2018 6:37 PM Does patient have decision making capacity? yes
--- OUTSIDE RECORDS SUMMARY | 2019-12-08 19:56 | XMS REPORT | Summary of Care ---
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 Essential hypertension; [address] Dry skin dermatitis; [place], [place] [id number] [place] [address] Testicular hypofunction; [phone] Depression, unspecified depression type Allergies Active Allergy Reactions Severity Noted Date Comments Metformin GI Reaction 09/26/2017 Nsaids Other 05/06/2016 Renal Statins Musculoskeletal 04/29/2018 With elevated CPK on lipitor Tizanidine Cardiac Reaction 05/04/2015 Syncope documented as of this encounter (statuses as of 10/22/2019) Medications Medication Sig Dispensed Refills Start Date End Date Status hydroxychloroquine Take 400 mg by 0 Active (PLAQUENIL) 200 MG Oral mouth DAILY. Tab TESTOSTERONE CYPIONATE IM Inject 50 mg 0 Active within a muscle. Sildenafil Citrate 100 MG Take 1 Tab by 30 Tab 0 05/31/2019 Active Oral Tab mouth DAILY. amitriptyline (ELAVIL, TAKE FOUR 240 Tab 1 06/18/2019 Active ENDEP) 25 MG Oral TABLETS BY TabIndications: Insomnia, MOUTH AT unspecified type BEDTIME sitagliptin (JANUVIA) 100 Take 1 Tab by 90 Tab 0 07/18/2019 Active MG Oral TabIndications: mouth DAILY. Uncontrolled type 2 diabetes mellitus with hyperglycemia (HCC) carvedilol (COREG) 12.5 Take 1 Tab by 60 Tab 2 07/18/2019 Active MG Oral TabIndications: mouth TWICE Hypertension, unspecified DAILY. type amLodipine (NORVASC) 10 TAKE ONE TABLET 90 Tab 1 07/26/2019 Active MG Oral TabIndications: BY MOUTH EVERY Hypertension, unspecified DAY type Omeprazole 40 MG Oral TAKE ONE 90 Cap 1 08/16/2019 Active CAPSULE DELAYED CAPSULE BY RELEASEIndications: MOUTH EVERY DAY Gastroesophageal reflux BEFORE disease, esophagitis BREAKFAST presence not specified lisinopril (PRINIVIL, TAKE ONE TABLET 90 Tab 1 08/18/2019 Active ZESTRIL) 40 MG Oral BY MOUTH EVERY TabIndications: DAY Hypertension, unspecified type glipiZIDE (GLUCOTROL XL) Take 2 Tabs by 180 Tab 1 08/18/2019 Active 10 MG Oral TABLET SR 24 mouth DAILY. HRIndications: Uncontrolled type 2 diabetes mellitus with hyperglycemia (HCC) clotrimazole-betamethason Apply sparingly 45 g 0 10/04/2019 Active e (LOTRISONE) 1-0.05 % to rash twice a Apply externally day CreamIndications: Rash hydrOXYzine HCL (ATARAX) Take 1 Tab by 90 Tab 0 10/09/2019 Active 25 MG Oral mouth THREE TabIndications: Rash TIMES DAILY NEEDED (itchiness of skin). venlafaxine (EFFEXOR XR) TAKE ONE 90 Cap 0 10/14/2019 Active 75 MG Oral CAPSULE SR 24 CAPSULE BY HRIndications: MOUTH EVERY DAY Depression, unspecified depression type chlorthalidone (HYGROTON) Take 1 Tab by 30 Tab 1 10/22/2019 Active 25 MG Oral mouth DAILY. TabIndications: Essential hypertension documented as of this encounter (statuses as of 10/22/2019) Active Problems Problem Noted Date Effusion of left knee 01/18/2019 Inflammatory arthritis [...] Summary - Melanoma Stage IA and IIA [place] [facility] Stage IA T1a Cancer Care Team: Surgeon: Dr. Medrano Surgical Physician Piano Builder: Tennille Mohan PA-C Diagnosis and Staging : [...] Establish care or Continue current visits with Medical Receptionist Biller for Total Body Skin Exams every 3-6 [...] Surgical Oncology [place]/Dr. Medrano - As Needed [facility] [place] [address] - Dermatology [place] [facility] Dr. Ray 02/18/2017 @ 2:30 PM [...] by urology Ramirez esophagus Overview: following with [place] [facility] Dr Gerard Statin intolerance Testicular hypofunction Overview: on Testosterone. seeing dr. summers documented as of this encounter (statuses as of 10/22/2019) Resolved Problems Problem Noted Date Resolved Date [...] as of this encounter (statuses as of 10/22/2019) Immunizations Name Administration Dates Next Due TDAP [...] Sign Reading Time Taken Comments Blood Pressure 140/84 10/22/2019 12:58 PM EST Pulse 86 10/22/2019 12:58 PM EST Temperature - - Respiratory Rate - - Oxygen Saturation 94% 10/22/2019 12:58 PM EST Inhaled Oxygen Concentration - - Weight 102.5 kg (226 lb) 10/22/2019 12:58 PM EST Height 177.8 cm (5' 10") 10/22/2019 12:58 PM EST Body Mass Index 32.43 10/22/2019 12:58 PM EST documented in this encounter Patient Instructions Patient InstructionsPaulette Felix NP - 10/22/2019 1:00 PM ESTKeep appointment with derm - or sooner appointment if possible. You should be going every 6-12 months (or whatever their recommendation is) for skin checks, given your history. Schedule eye exam - [facility] in [place]. Have someone drive you to this exam as your eyes will be dilated. Hydroxyzine three times daily - for the skin. [facility] [phone] Please call to make an appointment. Continue the lisinopril and amlodipine. Add chlorthalidone 25 mg for blood pressure - take once daily. Return in 2 weeks for nurse visit blood pressure check. Check your blood pressures at home and bring record with you. Do labs today. documented in this encounter Progress Notes Paulette Felix NP - 10/22/2019 1:00 PM EST PATIENT: Reji Serra : 1955 DATE OF SERVICE: 10/22/2019 CHIEF COMPLAINT: Chief Complaint Patient presents with Check Up rash that contiues to spread also feeling sob upon exertion Subjective HISTORY OF PRESENT ILLNESS: Reji Serra is a 64-y.o. male. HPI Recent visit with vadim RENEE for dermatitis - trial of hydroxyzine. Eucerin not helping. Reduced showers per caroline recommendations, not helping. Did not get in with social welfare research worker yet. The one in [place] is trying to get him in. Somewhere around November 05, on waiting list for cancellation. Hydrocortisone cream not helped. Rash started about one month ago. [facility]astasis recti . On PPI for 2 months then plan is to do EGD. EGD schedule November 15. Derm every 3-6 months for skin checks - history of bcc. Diabetes: glipizide 20mg; Januvia 100mg; Last aic 07/14 7.0 Home Glucose Readings: Not checking. Diet: One meal a day. When he tries to eat more, he isn't able to eat as much. No weight loss. Activity: Nothing. Went to the gym 6 months ago. He took 3 months off from the gym because he didn't feel right - muscles are weak. Feels he is losing muscle mass. He thinks weakness started when his testosterone dropped - he previously took workout supplements and testosterone from the store, butthen stopped and then became lower. Did steroids 4 years ago and then stopped. Feet: Checking daily - right pinky toe has a bulge on bottom of the toe, not painful - no feeling inthe area. Eye Exam: Apr 2018 - overdue. Hypertension: amlodipine 10mg; lisinopril 40mg - slightly elevated today 140/84. Dr. Summers for testosterone every year. Last seen one month ago. His testosterone level was normal at this visit. 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 He tried therapy in the past but did not do well with her therapist - would help with his paperwork and talk about her own . 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 seeing dr. summers Unspecified essential hypertension Wrist fracture teen Family [...] Apply sparingly to rash twice a day glipiZIDE (GLUCOTROL XL) 10 MG Oral TABLET SR 24 HR Take 2 Tabs by mouth DAILY. hydroxychloroquine (PLAQUENIL) 200 MG Oral Tab Take 400 mg by mouth DAILY. hydrOXYzine HCL (ATARAX) 25 MG Oral Tab Take 1 Tab by mouth THREE TIMES DAILY NEEDED (itchiness of skin). lisinopril (PRINIVIL, ZESTRIL) 40 MG Oral Tab TAKE ONE TABLET BY MOUTH EVERY DAY Omeprazole 40 MG Oral CAPSULE DELAYED RELEASE TAKE ONE CAPSULE BY MOUTH EVERY DAY BEFORE BREAKFAST Sildenafil Citrate 100 MG Oral Tab Take [...] file Gets together: Not on file Attends spiritism service: Not on file Active member of [...] REVIEW OF SYSTEMS: Review of Systems Constitutional: Positive for malaise/fatigue and weight loss. Eyes: Negative for blurred vision. Cardiovascular: Negative for chest pain and palpitations. Gastrointestinal: Negative for abdominal pain, nausea and vomiting. Genitourinary: Negative for frequency. Neurological: Positive for sensory change and weakness. Negative for tingling. Psychiatric/Behavioral: Positive for depression. Objective PHYSICAL EXAM: VITALS: BP 140/84 (BP Location: Left arm, Patient Position: Sitting) | Pulse 86 | Ht 5' 10" (1.778 m) | Wt 226 lb (102.5 kg) | SpO2 94% | BMI 32.43 kg/m Body mass index is 32.43 kg/m. Physical Exam Vitals signs and nursing note reviewed. Constitutional: General: He is not in acute distress. Appearance: Normal appearance. He is obese. Cardiovascular: Rate and Rhythm: Normal rate and regular rhythm. Pulses: Normal pulses. Dorsalis pedis pulses are 2+ on the right side and 2+ on the left side. Pulmonary: Effort: Pulmonary effort is normal. No respiratory distress. Breath sounds: Normal breath sounds. Musculoskeletal: Right foot: Normal range of motion. Deformity present. No bunion, Charcot foot, foot drop or prominent metatarsal heads. Left foot: Normal range of motion. No deformity, bunion, Charcot foot, foot drop or prominent metatarsal heads. Feet: Right foot: Protective Sensation: 9 sites tested. 7 sites sensed. Skin integrity: Callus present. Toenail Condition: Right toenails are normal. Left foot: Protective Sensation: 9 sites tested. 9 sites sensed. Skin integrity: Skin integrity normal. Toenail Condition: Left toenails are normal. Skin: General: Skin is warm and dry. Neurological: General: No focal deficit present. Mental Status: He is alert and oriented to person, place, and time. Psychiatric: Mood and Affect: Mood normal. Behavior: Behavior normal. Thought Content: Thought content normal. Judgment: Judgment normal. Left foot Diabetic foot exam: Visual exam: normal Sensory: Filament test: present Pulse: a pulse was present Right foot diabetic exam Visual exam: callus lateral aspect Sensory: Filament test: present Pulse: a pulse was present ASSESSMENT / IMPRESSION: ICD-9-CM ICD-10-CM 1. Controlled type 2 diabetes mellitus with diabetic neuropathy, with long-term current use of insulin ([facility]) 250.60 E11.40 BASIC METABOLIC PANEL 357.2 Z79.4 GLYCOHEMOGLOBIN A1C V58.67 GLYCOHEMOGLOBIN A1C BASIC METABOLIC PANEL 2. Essential hypertension 401.9 I10 chlorthalidone (HYGROTON) 25 MG Oral Tab 3. Dry skin dermatitis 692.89 L85.3 4. Testicular hypofunction 257.2 E29.1 5. Depression, unspecified depression type 311 F32.9 Plan 1. Essential hypertension Start chlorthalidone - EGD had to be reschedule d/t to his high blood pressure. Continue the lisinopril and amlodipine. Add chlorthalidone 25 mg for blood pressure - take once daily. Return in 2 weeks for nurse visit blood pressure check. Check your blood pressures at home and bring record with you. - chlorthalidone (HYGROTON) 25 MG Oral Tab; Take 1 Tab by mouth DAILY. Dispense : 30 Tab; Refill: 1 2. Controlled type 2 diabetes mellitus with diabetic neuropathy, with long-term current use of insulin ([facility]) Check labs today. Schedule eye exam. - BASIC METABOLIC PANEL; Future - GLYCOHEMOGLOBIN A1C; Future - GLYCOHEMOGLOBIN A1C - BASIC METABOLIC PANEL 3. Dry skin dermatitis Appointment coming up with dermatology. Also should be going regularly every 6-12 months given his history of skin cancer 4. Testicular hypofunction From steroid abuse in the past. Muscle wasting and weakness has been worked up extensively in the past. Sees Dr. Summers for testosterone replacement. 5. Depression Strongly encouraged him to seek therapy - given # for [facility] Follow up in 3 months. Author: Paulette Felix NP 10/22/2019 17:24 documented in this encounter Plan of Treatment Date Type Specialty Care Team Description 11/05/2019 Lab Internal Medicine 11/11/2019 Office Visit Urology David Mae MD [address] [place] [address] [phone] Name Type Priority Associated Diagnoses Date/Time BASIC METABOLIC PANEL Lab Routine Controlled type 2 10/22/2019 1:58 PM EST diabetes mellitus with diabetic neuropathy, with long-term current use of insulin (HCC) GLYCOHEMOGLOBIN A1C Lab Routine Controlled type 2 10/22/2019 1:58 PM EST diabetes mellitus with diabetic neuropathy, with long-term current use of insulin (HCC) Name Type Priority Associated Diagnoses Order Schedule BASIC METABOLIC PANEL Lab Routine Controlled type 2 diabetes Expected: 12/2019 mellitus with diabetic (Approximate), Expires: neuropathy, with long-term 10/22/2020 current use of insulin (HCC) GLYCOHEMOGLOBIN A1C Lab Routine Controlled type 2 diabetes Expected: 2019 mellitus with diabetic (Approximate), Expires: neuropathy, with long-term 10/22/2020 current use of insulin (HCC) Health Maintenance Due Date Last Done Comments MEDICARE ANNUAL WELLNESS 1955 VISIT PNEUMOCOCCAL 0-64 YRS (1 of 1963 1 - PPSV23) FOOT EXAM 1975 ZOSTER IMMUNIZATION SERIES 2007 (1 of 2) HEMOGLOBIN A1C 10/13/2019 07/14/2019, 04/15/2019, 12/04/2018, Additional history exists DEPRESSION SCREENING 04/15/2020 04/15/2019, 04/15/2019 Diabetic Eye Exam 04/23/2020 04/23/2018, 04/23/2018, 04/23/2018, Additional history exists LIPID DISORDER SCREENING 07/14/2020 07/14/2019, 09/06/2017, 05/02/2016, Additional history exists Colonoscopy 11/20/2020 11/20/2015, 11/20/2015, [...] Type Problems Progress Blood Pressure Blood Pressure 140/84 No Rylee, < 140/90 (10/22/2019 MD Anthony 12:58 PM EST) Note: This is an individualized [...] your depression. Glycohemoglobin A1c < 7.0 Diabetes 7.0 (07/14/2019 11:05 AM No Magdalena Collins RN EDT) Note: This is an individualized treatment (diabetes control, HgbA1C) goal for Reji Serra: Displayed above is your progress towards your HgbA1C goal. Your goal is shown above (on the left); your most recent HgbA1C is shown on the right. Note that lower numbers are better. Weight loss vs. 18 mo Lifestyle 11 (10/22/2019 12:58 PM No Anthony Mckee MD max (lbs) [...] loss goal. Keep immunizations current Lifestyle No Magdalean Collins RN Note: This is an individualized [...] ongoing basis. documented as of this encounter Results Not on filedocumented in this encounter Visit Diagnoses Diagnosis Essential hypertension Unspecified essential hypertension Controlled type 2 diabetes mellitus with diabetic neuropathy, with long-term current use of insulin (HCC) Dry skin dermatitis Contact dermatitis and other eczema due to other specified agent Testicular hypofunction Other testicular hypofunction Depression, unspecified depression type documented in this encounter Guarantor Name Account Type Relation to Date of Phone Billing Patient Address Reji Serra Personal/Family 1955 [address] (Home) [place], [place] [phone] [address] (Work) documented as of this encounter Advance Directives Code Status Date Activated Date Inactivated Comments Full Code 01/08/2018 4:15 PM 01/11/2018 6:37 PM Does patient have decision making capacity? yes
--- OUTSIDE RECORDS SUMMARY | 2019-12-08 19:56 | XMS REPORT | Summary of Care ---
:1955 Author Organization [facility] Address [address] [place] [address] Care Team Providers Name Role Phone Paulette Felix Primary Care Provider Reason for Visit Reason Comments Procedure Trus biopsy Encounter Details Date Type Department Care Team Description 12/06/2019 Office Visit [facility] [place]ita, Elevated prostate [facility] Andreea Hernandez MD specific antigen (PSA) [address] (Primary Dx) [place] [address] [place] [address] [phone] Allergies Active Allergy Reactions Severity Noted Date Comments Metformin GI Reaction 09/26/2017 Nsaids Other 05/06/2016 Renal Statins Musculoskeletal 04/29/2018 With elevated CPK on lipitor Tizanidine Cardiac Reaction 05/04/2015 Syncope documented as of this encounter (statuses as of 12/06/2019) Medications Medication Sig Dispensed Refills Start Date End Date Status hydroxychloroquine Take 400 mg by 0 Active (PLAQUENIL) 200 MG Oral mouth DAILY. Tab TESTOSTERONE CYPIONATE Inject 50 mg 0 Active IM within a muscle. sitagliptin (JANUVIA) Take 1 Tab by 90 [...] Uncontrolled type 2 diabetes mellitus with hyperglycemia ([facility]) clotrimazole-betamethas Apply 45 g 0 10/04/2019 Active [...] with long-term current use of insulin ([facility]) Liraglutide 18 MG/3ML Inject 0.6 mg 3 Pre-filled 3 10/27/2019 Active Subcutaneous Solution beneath the Pen Syringe 0 Pen-injectorIndications skin DAILY for : Controlled type 2 7 days, THEN diabetes mellitus with 1.2 mg DAILY diabetic neuropathy, for 90 days. with long-term current use of insulin ([facility]) pioglitazone (ACTOS) 15 Take 1 Tab by 90 Tab 1 10/28/2019 Active MG Oral TabIndications: mouth DAILY. Type 2 diabetes mellitus without complication, without long-term current use of insulin (HCC) amitriptyline (ELAVIL, TAKE FOUR 240 Tab 1 11/22/2019 Active ENDEP) 25 MG Oral TABLETS BY TabIndications: MOUTH AT Insomnia, unspecified BEDTIME type Sildenafil Citrate 100 Take 1 Tab by 30 Tab 0 11/29/2019 Active MG Oral Tab mouth DAILY. ciprofloxacin (CIPRO) Take 1 Tab by 10 Tab 0 12/06/2019 Active 500 MG Oral Tab mouth 0 DIRECTED for 5 days. Start with 2 tablets the day of procedure and 1 tablet twice the day afterwards. Hospital, Clinic, or Other Ordered Dose Route Frequency Start Date End Date Status Facility Administered Medication ceftriaxone (ROCEPHIN) 1000 mg IJ NOW 12/06/2019 12/06/2019 Ended injection 1,000 mgIndications: Elevated prostate specific antigen (PSA) gentamicin (GARAMYCIN) 80 mg IM X1 12/06/2019 12/06/2019 Ended injection 40 MG/MLIndications: Elevated prostate specific antigen (PSA) documented as of this encounter (statuses as of 12/06/2019) Active Problems Problem Noted Date Spongiotic dermatitis [...] Summary - Melanoma Stage IA and IIA [facility] Stage IA T1a Cancer Care Team: Surgeon: Dr. Medrano Surgical Physician Furniture Duster: Tennille Mohan PA-C Diagnosis and Staging : Date of diagnosis: 12/03/16 Final Pathologic Diagnosis 1. Skin, left back, excision: ? ? - ? Malignant melanoma, non-ulcerated, invasive to a depth of 0.73 mm. ? ? ? Synoptic Report: ? ? ? - ? Site: ? Left back. ? ? ? - ? Breslow's thickness: ? 0.73 mm. ? ? ? - ? Tenzin's level: ? IV. ? ? ? - ? Cell type: ? Epithelioid. ? ? ? - ? Ulceration: ? Not identified. ? ? ? - ? Mitotic index: ? <1/mm2. ? - ? Microsatellite nodules: ? Not identified. ? ? ? - ? Lymphovascular invasion: ? Not identified. ? ? ? - ? Perineural invasion: ? Not identified. ? ? ? - ? Regression: ? Present. ? ? ? - ? Tumor infiltrating lymphocytes: ? Minimal. ? ? ? - ? Pre-existing lesions: ? Dysplastic nevus. ? ? ? - ? Margins: ? The intraepidermal component and dermal components extend to within 0.5 mm and 2 mm of a radial margin, respectively. ? ? ? - ? Pathologic staging (AJCC Seventh Edition): ? pT1a, NX, MX. Primary site: Left Upper [...] Pathologic Diagnosis 1. Skin, left shoulder, excision: ? ? - ? No residual melanoma seen. ? ? - ? Biopsy site changes. FOLLOW UP PLAN Post Treatment Surveillance Recommendations: - Establish care or Continue current visits with Yard Labor Supervisor for Total Body Skin Exams every 3-6 [...] Surgical Oncology [place]/Dr. Medrano - As Needed [address] Surgical Oncology [place] [address] - Dermatology [place] [facility]. Ray 02/18/2017 @ 2:30 PM [...] by urology Ramirez esophagus Overview: following with [facility] Dr Gerard Statin intolerance Testicular hypofunction Overview: on Testosterone. seeing dr. slater documented as of this encounter (statuses as of 12/06/2019) Resolved Problems Problem Noted Date Resolved Date [...] as of this encounter (statuses as of 12/06/2019) Immunizations Name Administration Dates Next Due TDAP Vaccine 08/05/2014 documented as of this encounter Social History Tobacco Use Types Packs/Day Years Used Date Never Smoker Smokeless Tobacco: Never Used Alcohol Use Drinks/Week oz/Week Comments Yes 4 Glasses of wine 4.0 weekends: 4 vodkas. Sex Assigned at Date Recorded Not on file documented as of this encounter Last Filed Vital Signs Not on filedocumented in this encounter Progress Notes David Mae MD - 12/06/2019 2:30 PM ESTAttended for prostate biopsy - see procedure notes documented in this encounter Plan of Treatment Name Type Priority Associated Diagnoses Order Schedule PROSTATE BIOPSY Procedures Routine Elevated prostate Ordered: 12/06/2019 specific antigen (PSA) TRANSRECTAL ULTRASOUND Procedures Routine Elevated prostate Ordered: 2019 specific antigen (PSA) Health Maintenance Due Date Last Done Comments [...] Type Problems Progress Blood Pressure Blood Pressure 132/88 No Rylee, < 140/90 (11/29/2019 MD Anthony 11:32 AM EST) Note: This is an individualized treatment [...] Diabetes 9.4 (10/22/2019 1:58 PM No Magdalena Collins, GERONIMO EST) Note: This is an individualized treatment [...] is an individualized lifestyle goal for Reji Sae Serra: Your body mass index (BMI) is [...] filedocumented in this encounter Visit Diagnoses Diagnosis Elevated prostate specific antigen (PSA) documented in this encounter Administered Medications Medication Order MAR Action Action Date Dose Rate Site ceftriaxone (ROCEPHIN) Given 12/06/2019 2:17 PM 1,000 mg Buttocks - Right injection 1,000 mg EST 1,000 mg, Injection, NOW, 1 dose, 12/06/19 at 1420 gentamicin (GARAMYCIN) Given 12/06/2019 2:15 PM EST 160 mg Buttocks - Left injection 40 MG/ML 80 mg, Intramuscular, X1, 1 dose, First dose on 12/06/19 at 1520 documented in this encounter Guarantor Name Account Type Relation to Date of Phone Billing Patient Address Reji Serra Personal/Family 1955 [phone] [address] (Home) [place], [place] [phone] [address] (Work) documented as of this encounter Advance Directives Code Status Date Activated Date Inactivated Comments Full Code 01/08/2018 4:15 PM 01/11/2018 6:37 PM Does patient have decision making capacity? yes
--- OUTSIDE RECORDS SUMMARY | 2019-12-08 19:56 | XMS REPORT | Summary of Care ---
:1955 Author Organization [facility] Address [address] [place] [address] Care Team Providers Name Role Phone Paulette Felix Primary Care Provider Reason for Visit Reason Comments Follow Up 6 month f/u w/PSA check Encounter Details Date Type Department Care Team Description 11/11/2019 Office Visit [facility] Carmelita, Abnormal blood creatinine level (Primary Dx); [address] MD David [place] of [place] [address] [address] Souza [phone] [place] [address] [phone] Allergies Active Allergy Reactions Severity Noted Date Comments Metformin GI Reaction 09/26/2017 Nsaids Other 05/06/2016 Renal Statins Musculoskeletal 04/29/2018 With elevated CPK on lipitor Tizanidine Cardiac Reaction 05/04/2015 Syncope documented as of this encounter (statuses as of 11/11/2019) Medications Medication Sig Dispensed Refills Start Date [...] neuropathy, with long-term current use of insulin ([facility]) Liraglutide 18 MG/3ML Inject 0.6 mg 3 Pre-filled 3 10/27/2019 Active Subcutaneous Solution beneath the Pen Syringe 0 Pen-injectorIndications skin DAILY for : Controlled type 2 7 days, THEN diabetes mellitus with 1.2 mg DAILY diabetic neuropathy, for 90 days. with long-term current use of insulin ([facility]) pioglitazone (ACTOS) 15 Take 1 Tab by 90 Tab 1 10/28/2019 Active MG Oral TabIndications: mouth DAILY. Type 2 diabetes mellitus without complication, without long-term current use of insulin ([facility]) documented as of this encounter (statuses as of 11/11/2019) Active Problems Problem Noted Date Spongiotic dermatitis [...] Summary - Melanoma Stage IA and IIA [place] [facility] Stage IA T1a Cancer Care Team: Surgeon: Dr. Medrano Surgical Physician Steel Pan Form Placing Supervisor: Teninlle Mohan PA-C Diagnosis and Staging : Date [...] Establish care or Continue current visits with Paraplanner for Total Body Skin Exams every 3-6 [...] Surgical Oncology [place]/Dr. Medrano - As Needed [facility] On[facility] [place] [address] - Dermatology [facility]. Ray 02/18/2017 @ 2:30 PM [...] by urology Ramirez esophagus Overview: following with [place] CHUCK Gerard Statin intolerance Testicular hypofunction Overview: on Testosterone. seeing dr. slater documented as of this encounter (statuses as of 11/11/2019) Resolved Problems Problem Noted Date Resolved Date [...] as of this encounter (statuses as of 11/11/2019) Immunizations Name Administration Dates Next Due TDAP [...] encounter Progress Notes David Mae MD - 11/11/2019 10:45 AM EST PATIENT: Reji Serra : 1955 DATE OF SERVICE: 11/11/2019 REFERRING PRACTITIONER: Casey Fuller PRIMARY CARE PROVIDER: Paulette Felix CHIEF COMPLAINT: Chief Complaint Patient presents with Follow Up 6 month f/u w/PSA check Subjective HISTORY OF PRESENT ILLNESS: Reji Serra is a 64-y.o. male who presents for followup of his 1. right partial nephrectomy and 2. Raised PSA and 3. 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 He denies any Lower Urinray tract symptoms Takes viagra for ED He is due for follow up CT in January 2020 Hs PSA has gone up and %Free PSA is low Results for REJI SERRA ( ) as of 11/11/2019 10:54 Ref. Range 08/20/2018 16:05 09/02/2018 08:25 03/02/2019 14:30 06/11/2019 10:17 13:46 % Free Latest Ref Range: >25 % 7 (L) PSA Latest Ref Range: < OR = 4.0 NG/ML 1.33 0.7 3.05 3.19 5.4 (H) PSA, Free Latest Units: NG/ML 0.1 0.4 Results for REJI SERRA ( ) as of 11/11/2019 10:54 Ref. Range 07/14/2019 11:05 10/22/2019 13:58 11/08/2019 13:46 Sodium Latest Ref Range: 134 - 145 mmol/L 142 135 131 (L) Potassium Latest Ref Range: 3.5 - 5.1 mmol/L 3.8 4.3 3.4 (L) Chloride Latest Ref Range: 98 - 107 mmol/L 100 96 (L) 86 (L) Creatinine Latest Ref Range: 0.8 - 1.5 mg/dl 1.0 0.9 1.6 (H) eGFR Latest Ref Range: See Interpretation Below ml/min/1.73ml Sq >60 >60 44 Current Outpatient Medications Medication Sig amitriptyline (ELAVIL, [...] CPK on lipitor Tizanidine Cardiac Reaction Syncope REVIEW OF SYSTEMS: All remaining review of systems was negative except for as noted in the history of present illness/subjective. Objective PHYSICAL EXAMINATION: VITALS: There were no vitals taken for this visit. There is no height or weight on file to calculate BMI. GENERAL: healthy, well nourished, in no distress. LUNGS: good air entry bilaterally, no crackles or wheezes. HEART: regular rhythm, no murmurs, no gallops, no rubs. ABDOMEN: no palpable masses, organomegaly or hernias, no peritoneal, flank or bladder tenderness. GENITOURINARY: defer exam. LABORATORY DATA: Urine today in the office is na DIAGNOSTIC DATA: Diagnostic tests reviewed today: labs Plan IMPRESSION/PLAN:1. right partial nephrectomy and 2. Raised PSA and 3. Erectile Dysfunction Recheck BMP TRUS biopsies of prostate The risks of prostate biopsy were reviewed in great detail. The need for a transrectal needle that perforates the rectal wall to access the prostate increases the risk of significant infection that canrequire hospitilization. The use of periprocedural antibiotics before and after the procedure decreases the risk of infection, but does not obviate this. The patient was instructed to rest and drink plenty of fluid for 24 hours after the procedure. If any fever develops , then he should either contactour office or proceed directly to the emergency room. He should expect some rectal and urethral bleeding and will see hemospermia. He may developed some increased slowing of his urnary stream Author: David Mae MD 11/11/2019 10:54 documented in this encounter Plan of Treatment Date Type Specialty Care Team Description 11/12/2019 Office Visit Family [facility] Paulette Felix, AMARILYS [address] [place] [address] [phone] Name Type Priority Associated Diagnoses Order Schedule BASIC METABOLIC PANEL Lab Routine Abnormal blood creatinine Expected: 11/11 level (Approximate), Expires: History of renal cell 11/11/2020 cancer Health Maintenance Due Date Last Done Comments [...] treatment (diabetes control, HgbA1C) goal for Reji Noriegaabe: Displayed above is your progress towards your [...] filedocumented in this encounter Visit Diagnoses Diagnosis Abnormal blood creatinine level History of renal cell cancer documented in this encounter Guarantor Name Account Type Relation to Date of Phone Billing Patient Address Reji Serra Personal/Family 1955 [address] (Home) [place], [place] [phone] (Work) documented as of this encounter Advance Directives Code Status Date Activated Date Inactivated Comments Full Code 01/08/2018 4:15 PM 01/11/2018 6:37 PM Does patient have decision making capacity? yes
--- OUTSIDE RECORDS SUMMARY | 2019-12-08 19:56 | XMS REPORT | Continuity of Care Document ---
:1955 External Reference #:[id number] Author Name Yoshi Gerard MD (transmitted by agent of provider Jeniffer Londono) Address [address] [place] [address] Care Team Providers Name Role Phone Casey Fuller D.O. - Family Medicine Care Team Information Wire Chief Problems Active Problems Provider Date Cervical disc disorder Tom Cruz M.D. Onset: 11/05/2017 Alcohol abuse Yoshi Gerard MD Onset: 01/15/2001 Note: Beer until 2008 then bloating had him switch to vanilla vodka; Vodka was his preferred drink until summer 2017; then Eder's Hard Lemonade; drinks GFs wine; MCV of 103 August 2019 his highest; Gastroesophageal reflux disease with hiatal Yoshi Gerard MD Onset: 03/30 hernia Note: severe GERD 09/29/17 with Ramirez's Social History Type Date Description Comments Sex Unknown Tobacco Use Start: Unknown Never Smoked Cigarettes Smoking Status Reviewed: 12/01/19 Never Smoked Cigarettes ETOH Use Currently consumes Eder's Hard alcohol Lemonade about 2 per day Tobacco Use Start: Unknown Patient has never smoked Recreational Drug Use Denies Drug Use Exercise Type/Frequency Exercises regularly gym daily Allergies, Adverse Reactions, Alerts Active Allergies Reaction Severity Comments Date NSAIDS 11/05/2017 Statins elevated CPK with Lipitor 09/14/2018 Tizanidine syncope 09/14/2018 Medications Active Medications SIG Qnty Indications Ordering Date Provider Testosterone 100mg (1/2 ml) 10ml Cody Summers MD 10/04/2019 Cypionate every week, code f 200mg/ml Solution Omeprazole 1 by mouth upon 60caps K22.70 Yoshi Barriga 09/09/2019 40mg awakening MD Moustapha Capsules DR Lisinopril take 40mg once 30tabs I10 Cody Summers MD 11/17/2018 40mg Tablets daily for hypertension Amitriptyline HCL take 3 tablets at Unknown 25mg bedtime Tablets Amlodipine Besylate 1 by mouth every Unknown 5mg day Tablets Carvedilol 1 by mouth twice a Unknown 6.25mg day Tablets Glipizide ER Take 2 Tablets Once Unknown 10mg A Day Tablets ER 24HR Medications Administered in Office Medication SIG Qnty Indications Ordering Provider Date Injection Cosyntropin Nurse Visit Endocrinology 09/21/2018 0.25MG Injection Injection Cosyntropin Cody Summers MD 09/21/2018 0.25MG Injection Immunizations Description No Information Available Vital Signs Date Vital Result Comment 12/01/2019 10:29am Height 70 inches 5'10" Weight 228.12 lb Heart Rate 104 /min BP Systolic Sitting 167 mmHg works third shift has not taken meds yet today. BP Diastolic Sitting 103 mmHg works third shift has not taken meds yet today. O2 % BldC Oximetry 97 % BMI (Body Mass Index) 32.7 kg/m2 09/29/2019 2:23pm Height 70 inches 5'10" Weight 224.00 lb Heart Rate 90 /min BP Systolic 176 mmHg at end of intake BP Diastolic 101 mmHg at end of intake BP Systolic Sitting 189 mmHg BP Diastolic Sitting 116 mmHg BMI (Body Mass Index) 32.1 kg/m2 Results Test Acquired Date Facility Test Result H/L Range Note CBC Auto 09/29/2019 [facility] White Blood 6.5 10^3/uL Normal 3.5-10.[address] [place] [address] [phone] Red Blood Count 4.74 10^6/uL Normal 4.18-5.48 Hemoglobin 17.8 g/dL Normal 14.0-18.0 Hematocrit 49 % Normal 42-52 Mean Corpuscular Volume 104 fL High 80-94 Mean Corpuscular Hemoglobin 38 pg High 27-31 Mean Corpuscular HGB Conc 36 g/dL Normal 31-36 Red Cell Distribution Width 14 % Normal 10-15 Platelet Count 184 10^3/uL Normal 150-450 Mean Platelet Volume 9.3 fL Normal 7.4-10.4 Abs Neutrophils 3.9 10^3/uL Normal 1.5-7.7 Abs Lymphocytes 1.4 10^3/uL Normal 1.0-4.8 Abs Monocytes 0.6 10^3/uL Normal 0-0.8 Abs Eosinophils 0.5 10^3/uL Normal 0-0.6 Abs Basophils 0.1 10^3/uL Normal 0-0.2 Abs Nucleated RBC 0.0 10^3/uL Granulocyte % 59.3 % Lymphocyte % 21.3 % Monocyte % 9.8 % Eosinophil % 8.4 % Basophil % 1.2 % Nucleated Red Blood Cells % 0.3 Laboratory test 09/29/2019 [facility] Testosterone 135.49 Low 240-[address] Total ng/[place] [address] [phone] Sex Hormone Binding Globulin 37 nmol/L 10-57 1 CBC Auto 09/09/2019 [facility] White Blood 7.2 10^3/uL Normal 3.5-10.[address] [place] [address] [phone] Red Blood Count 4.69 10^6/uL Normal 4.18-5.48 Hemoglobin 17.3 g/dL Normal 14.0-18.0 Hematocrit 48 % Normal 42-52 Mean Corpuscular Volume 103 fL High 80-94 Mean Corpuscular Hemoglobin 37 pg High 27-31 Mean Corpuscular HGB Conc 36 g/dL Normal 31-36 Red Cell Distribution Width 15 % Normal 10-15 Platelet Count 187 10^3/uL Normal 150-450 Mean Platelet Volume 9.3 fL Normal 7.4-10.4 Abs Neutrophils 4.6 10^3/uL Normal 1.5-7.7 Abs Lymphocytes 1.4 10^3/uL Normal 1.0-4.8 Abs Monocytes 0.6 10^3/uL Normal 0-0.8 Abs Eosinophils 0.4 10^3/uL Normal 0-0.6 Abs Basophils 0.1 10^3/uL Normal 0-0.2 Abs Nucleated RBC 0.0 10^3/uL Granulocyte % 64.6 % Lymphocyte % 20.0 % Monocyte % 8.7 % Eosinophil % 5.4 % Basophil % 1.3 % Nucleated Red Blood Cells % 0.0 Comp Metabolic 09/09/2019 [facility] Sodium 136 mmol/L Normal 135-[address] [place] [address] [phone] Potassium 3.9 mmol/L Normal 3.5-5.0 Chloride 100 mmol/L Low 101-111 Co2 Carbon Dioxide 28 mmol/L Normal 22-32 Anion Gap 8 mmol/L Normal 2-11 Glucose 262 mg/dL High 70-100 Blood Urea Nitrogen 12 mg/dL Normal 6-24 Creatinine 1.31 mg/dL High 0.67-1.17 BUN/Creatinine Ratio 9.2 Normal 8-20 Calcium 9.4 mg/dL Normal 8.6-10.3 Total Protein 6.6 g/dL Normal 6.4-8.9 Albumin 3.9 g/dL Normal 3.2-5.2 Globulin 2.7 g/dL Normal 2-4 Albumin/Globulin Ratio 1.4 Normal 1-3 Total Bilirubin 1.50 mg/dL High 0.2-1.0 Alkaline Phosphatase 144 U/L High 34-104 Alt 62 U/L High 7-52 Ast 50 U/L High 13-39 Egfr Non- 55.4 >60 Egfr 67.1 >60 2 1 Test Performed by: [facility] [address] [place] [address] Sheet Roller Operator: Donn Espinoza M.D. Ph.D.; CLIA# [id number] 2 Because ethnic data is not always readily available, this report includes an eGFR for both -Americans and non- Americans. The National Kidney Disease Education Program (NKDEP) does not endorse the use of the MDRD equation for patients that are not between the ages of 18 and 70, are , have extremes of body size, muscle mass, or nutritional status, or are non- or non-. According to the National Kidney Foundation, irrespective of diagnosis, the stage of the disease is based on the level of kidney function: Stage Description GFR(mL/min/1.73 m(2)) 1 Kidney damage with normal or decreased GFR 90 2 Kidney damage with mild decrease in GFR 60-89 3 Moderate decrease in GFR 30-59 4 Severe decrease in GFR 15-29 5 Kidney failure <15 (or dialysis) Procedures Date Code Description Status 10/26/2019 28622 Punch Biopsy Of Skin Completed 11/20/2015 93325409 Colonoscopy Completed Medical Devices Description No Information Available Encounters Type Date Location Provider Dx Diagnosis Office Visit 11/02/2019 [facility] D[facility]atology AT [place], T88.7xxA Unsp adverse 10:40a Gonzalo PALMA effect of drug or medicament, init encntr Office Visit 09/29/2019 [facility] and Cody Summers MD T38.0x5D Adverse effect 2:40p Endocrinology of [facility] of glucocort/synth analog, subs E29.1 Testicular hypofunction I10 Essential (primary) hypertension Office Visit 09/09/2019 [facility] Gastroenterology Yoshi Barriga 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 K63.89 Other specified diseases of intestine M62.08 Separation of muscle (nontraumatic), other site R63.4 Abnormal weight loss R13.10 Dysphagia, unspecified Assessments Date Code Description Provider 12/01/2019 I10 Essential (primary) hypertension Yoshi Gerard MD 12/01/2019 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 Yoshi Gerard MD 12/01/2019 N18.9 Chronic kidney disease, unspecified Yoshi Gerard MD 11/02/2019 T88.7xxA Unspecified adverse effect of drug or Davis Jaramillo MD medicament, initial encounter 10/26/2019 L30.9 Dermatitis, unspecified [place] Jaramillo MD 09/29/2019 T38.0x5D Adverse effect of glucocorticoids and Cody Summers MD synthetic analogues, subsequent encounter 09/29/2019 E29.1 Testicular hypofunction Cody Summers MD 09/29/2019 I10 Essential (primary) hypertension Cody Summers MD 09/09/2019 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 Yoshi Gerard MD 09/09/2019 K63.89 Other specified diseases of intestine Yoshi Gerard MD 09/09/2019 M62.08 Separation of muscle (nontraumatic), other Yoshi Gerard MD site 09/09/2019 R63.4 Abnormal weight loss Yoshi Gerard MD 09/09/2019 R13.10 Dysphagia, unspecified Yoshi Gerard MD Plan of Treatment Future Appointment(s):01/31/2020 3:30 pm - Yoshi Gerard MD at [facility] Qnhtsvvpgtcyrzpw96/02/2020 2:00 pm - Yoshi Gerard MD at [facility] Skurezmddooohiva66/12/2020 - Yoshi Gerard MDI10 Essential (primary) hypertensionFollow up:2 months - patient to call ahead to verify [facility] records have arrived.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Follow up:2 months - patient to call ahead to verify [facility] records have arrived.N18.9 Chronic kidney disease, unspecifiedFollow up:2 months - patient to call ahead to verify [facility] records have arrived. Functional Status Description No Information Available Mental Status Description No Information Available Referrals Description No Information Available
[2019-12-08] MEDS ORDERED: NS 0.9% 1000 ML** 1,000 ML IV ONE (22:06)
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
[2019-12-08 22:41] LABS: ABS Basophils 0.1 10^3/ul (0-0.2); ABS Eosinophils 0.1 10^3/ul (0-0.6); ABS Lymphocytes 0.9 10^3/ul (1.0-4.8); ABS Monocytes 1.1 10^3/ul (0-0.8); ABS Neutrophils 7.1 10^3/ul (1.5-7.7); Eosinophil % 1.3 %; Hematocrit 46 % (42-52); Hemoglobin 15.8 g/dL (14.0-18.0); Lymphocyte % 9.5 %; Mean Corpuscular HGB Conc 35 g/dL (31-36); Mean Corpuscular Hemoglobin 37 pg (27-31); Mean Corpuscular Volume 108 fL (80-94); Mean Platelet Volume 8.7 fL (7.4-10.4); Platelet Count 175 10^3/uL (150-450); Red Blood Count 4.24 10^6 /uL (4.18-5.48); Red Cell Distribution Width 16 % (10-15); White Blood Count 9.4 10^3/uL (3.5-10.8)
[2019-12-08 22:59] LABS: Albumin 3.8 g/dL (3.2-5.2); Albumin/Globulin Ratio 1.4 (1-3); BUN/Creatinine Ratio 6.7 (8-20); C Reactive Protein 37.72 mg/L (<8.01); Calcium 8.8 mg/dL (8.6-10.3); EGFR African American 31.5 (>60); EGFR Non-African American 26.1 (>60); Globulin 2.8 g/dL (2-4); Potassium 4.9 mmol/L (3.5-5.0); Total Bilirubin 1.7 mg/dL (0.2-1.0); Total Protein 6.6 g/dL (6.4-8.9)
[2019-12-09 02:11] VITALS: BP 164/98
== END 2019-12-09 02:10 | disposition home or self-care (01) ==
LOC: ED 19:28
DX: R10.9 Unspecified abdominal pain (principal); K76.0 Fatty (change of) liver, not elsewhere classified; K44.9 Diaphragmatic hernia without obstruction or gangrene; Z90.5 Acquired absence of kidney; K57.30 Diverticulosis of large intestine without perforation or abscess without bleeding; E11.9 Type 2 diabetes mellitus without complications; I10 Essential (primary) hypertension; Z85.820 Personal history of malignant melanoma of skin; Z85.828 Personal history of other malignant neoplasm of skin; Z79.84 Long term (current) use of oral hypoglycemic drugs; Z79.899 Other long term (current) drug therapy; Z88.8 Allergy status to other drugs, medicaments and biological substances
CPT/HCPCS: 36415; 74176; 80053; 83605; 83690; 85025; 86140; 96360; 99283